=== PATIENT | female | born 1995 | race Two or more races ===

== ENCOUNTER 2023-05-08 17:02 | Emergency (ER) | payer SELFPAY ==
[~2023-05-08] VITALS: Ht 170.2 cm; Wt 85.3 kg
[2023-05-08 17:36] VITALS: O2SAT 96
[2023-05-08 19:27] LABS: Urine Bacteria FEW /hpf (None Seen); Urine Blood Negative /uL (Negative); Urine Clarity Clear (Clear); Urine Color Yellow (Yellow); Urine Protein, UAD TRACE (Negative); Urine Specific Gravity 1.033 (1.001-1.035); Urine Urobilinogen Normal (Negative); Urine WBC 2 /hpf (0 - 5); Urine pH 5.5 (5.0-8.0)
[2023-05-08] MEDS ORDERED: NITR-87 PO (21:38)
[2023-05-08 22:10] VITALS: BP 107/67; PULSE 70; RESP 16; TEMP 97.8
== END 2023-05-08 22:14 | disposition home or self-care (01) ==
LOC: ER 17:02
DX: O20.0 Threatened abortion (principal); R10.2 Pelvic and perineal pain; O23.41 Unspecified infection of urinary tract in pregnancy, first trimester; Z3A.01 Less than 8 weeks gestation of pregnancy
CPT/HCPCS: 36415; 76801; 76817; 81001; 84702

== ENCOUNTER 2023-06-20 12:35 | Emergency (ER) | payer OTHER ==
[~2023-06-20] VITALS: Ht 167.6 cm; Wt 80.9 kg
[~2023-06-20 12:35] MED LIST: NITR-87 PO
[2023-06-20 13:40] LABS: Urine Epithelial Cast None Seen /hpf (<5)
[2023-06-20 13:50] LABS: Urine Bacteria FEW /hpf (None Seen); Urine Blood Negative /uL (Negative); Urine Clarity Clear (Clear); Urine Color Yellow (Yellow); Urine Mucus FEW (None Seen); Urine Protein, UAD Negative (Negative); Urine Specific Gravity 1.023 (1.001-1.035); Urine Urobilinogen Normal (Negative); Urine WBC 4 /hpf (0 - 5)
[2023-06-20 17:01] LABS: Basophils # (auto) 0.1 10 ^3/uL (0-0.2); Basophils % (auto) 0.6 % (0.0-2.0); Eosinophils # (auto) 0.2 10 ^3/uL (0-0.8); Eosinophils % (auto) 2.3 % (0.0-7.0); Hematocrit 38.9 % (36.0-46.0); Lymphocytes # (auto) 2.7 10 ^3/uL (0.4-5.4); Mean Corpuscular Hemoglobin 29.2 pg (28.0-32.0); Mean Corpuscular Hgb Conc. 33.4 g/dL (32.0-36.0); Mean Corpuscular Volume 87.5 fL (80.0-100.0); Monocytes # (auto) 0.6 10 ^3/uL (0-1.3); Monocytes % (auto) 6.9 % (0.0-12.0); Neutrophils % (auto) 58.2 % (37.0-80.0); Red Blood Cells 4.45 10^6/uL (4.0-5.20); Red Cell Distribution Width 13.2 % (11.8-14.3); White Blood Cell 8.5 10^3/uL (4.4-10.8)
[2023-06-20 17:12] LABS: Chloride 104 mmol/L (98-107); Potassium 3.6 mmol/L (3.5-5.1); Sodium 135 mmol/L (136-145)
[2023-06-20 17:13] LABS: Anion Gap 6 (5-15); Calcium 9.7 mg/dL (8.5-10.1); Carbon Dioxide 25 mmol/L (20-30)
[2023-06-20 17:18] LABS: BUN/Creatinine Ratio 15.9 (10.0-20.0); Blood Urea Nitrogen 11 mg/dL (9-23); Glucose 84 mg/dL (74-106)
[2023-06-20] MEDS ORDERED: NITR-87 PO (18:37)
[2023-06-20 18:44] VITALS: BP 112/66; PULSE 67; RESP 18; O2SAT 100
== END 2023-06-20 18:38 | disposition home or self-care (01) ==
LOC: ER 12:35
DX: O23.41 Unspecified infection of urinary tract in pregnancy, first trimester (principal); R10.2 Pelvic and perineal pain; Z3A.08 8 weeks gestation of pregnancy; Z79.899 Other long term (current) drug therapy
CPT/HCPCS: 36415; 80048; 81001; 84702; 85025